=== PATIENT | male | born 1990 | race Caucasian/White ===

== ENCOUNTER 2017-02-13 23:09 | Inpatient (IN) | payer OTHER, MEDICAID ==
[~2017-02-13] VITALS: Ht 175.3 cm; Wt 71.6 kg
[~2017-02-13 23:09] MED LIST: DIVA500T52 PO; RISP1 PO
[2017-02-14] MEDS ORDERED: ZOLPIDEM TARTRATE 10 MG TABLET PO PRN (03:00)
[2017-02-14] MEDS ORDERED: QUEtiapine FUMARATE 100 MG TABLET PO PRN (03:00)
[2017-02-14 03:56] VITALS: BP 112/82
[2017-02-14] MEDS: LORazepam 1 MG TABLET PO PRN ×2 (08:06→20:15)
[2017-02-14 08:31] VITALS: BP 115/83
[2017-02-14] MEDS ORDERED: METO25 PO (09:12)
[2017-02-14] MEDS ORDERED: BENZ1TAB10 PO (09:12)
[2017-02-14] MEDS ORDERED: OLAN10TA3 PO (09:12)
[2017-02-14 16:00] VITALS: BP 116/66
[2017-02-14] MEDS ORDERED: DIVALPROEX SODIUM 500 MG ER TABLET PO SCH (17:00)
[2017-02-14] MEDS: RisperiDONE 2 MG TABLET PO SCH (17:07)
[2017-02-14] MEDS ORDERED: ALBUTEROL SULFATE HFA 90 MCG/PUFF 8 GM INHALER IH PRN (18:30)
[2017-02-14] MEDS ORDERED: ONDANSETRON HCL 4 MG TABLET PO PRN (18:30)
[2017-02-14] MEDS ORDERED: MAGNESIUM HYDROXIDE SUSPENSION 30 ML UDCUP PO PRN (18:30)
[2017-02-14] MEDS ORDERED: IBUPROFEN 600 MG TABLET PO PRN (18:30)
[2017-02-14] MEDS ORDERED: LOPERAMIDE HCL 2 MG CAPSULE PO PRN (18:30)
[2017-02-14] MEDS ORDERED: MAG HYDROX/AL HYDROX/SIMETH ES 30 ML SUSPENSION UDCUP PO PRN (18:30)
[2017-02-14] MEDS ORDERED: BACITRACIN 28.4 GM OINTMENT TP PRN (18:30)
[2017-02-14] MEDS ORDERED: CloNIDine HCL 0.1 MG TABLET PO PRN (18:30)
[2017-02-14] MEDS ORDERED: BENZOCAINE/MENTHOL LOZENGE MM PRN (18:30)
[2017-02-14] MEDS ORDERED: PHENYLEPHRINE/SHK LV/MIN OIL/PET 57 GM OINTMENT TP PRN (18:30)
[2017-02-14] MEDS ORDERED: ACETAMINOPHEN 325 MG TABLET PO PRN (18:30)
[2017-02-14] MEDS ORDERED: PETROLATUM,WHITE 71 GM JELLY TP PRN (18:30)
[2017-02-15 05:44] VITALS: BP 104/65
[2017-02-15 08:14] LABS: BASOPHILS % (AUTO) 0.6 % (0.0-2.0); EOSINOPHILS % (AUTO) 3.4 % (1.0-6.0); HEMATOCRIT 50.6 % (41-53); HEMOGLOBIN 16.6 g/dL (13.5-17.5); LYMPHOCYTES # (AUTO) 2.3 K/uL (1.0-4.8); LYMPHOCYTES % (AUTO) 38.1 % (22.0-44.0); MEAN CORPUSCULAR HEMOGLOBIN 29.3 pg (26.0-34.0); MEAN CORPUSCULAR HGB CONC 32.8 G/dL (31.0-37.0); MEAN CORPUSCULAR VOLUME 89 fL (80-100); MONOCYTES # (AUTO) 0.6 K/uL (0.1-1.0); MONOCYTES % (AUTO) 10.5 % (2.0-9.0); NEUTROPHILS # (AUTO) 2.8 K/uL (1.8-7.7); NEUTROPHILS % (AUTO) 47.4 % (40.0-70.0); PLATELET COUNT (AUTO) 179 K/uL (150-450); RED BLOOD CELL COUNT(AUTO) 5.66 MIL/uL (4.50-5.90); RED CELL DISTRIBUTION WIDTH 12.4 % (11.5-14.5)
[2017-02-15 08:40] LABS: ALANINE AMINOTRANSFERASE 36 U/L (12-78); ALBUMIN 3.9 g/dL (3.4-5.0); ANION GAP 6 mmol/L (8-16); ASPARTATE AMINOTRANSFERASE 19 U/L (15-37); BILIRUBIN,TOTAL 0.7 mg/dL (0.1-1.0); CALCIUM, TOTAL 8.7 mg/dL (8.8-10.5); CARBON DIOXIDE 31 mmol/L (22-29); CHLORIDE 104 mmol/L (98-107); CHOL/HDL RATIO 3.6 (4.2-7.3); GLOMERULAR FILTR. RATE CALC > 60 mL/min (>60); PHOSPHORUS 3.6 mg/dL (2.5-4.9); POTASSIUM 4.1 mmol/L (3.5-5.1); SODIUM SERUM 141 mmol/L (136-145); THYROID STIMULATING HORMONE 4.37 uIU/mL (0.36-3.74); TOTAL PROTEIN, SERUM 7.4 g/dL (6.4-8.2); UREA NITROGEN, BLOOD 13 mg/dL (7-18)
[2017-02-15] MEDS ORDERED: METOPROLOL TARTRATE 25 MG TABLET PO SCH (09:00)
[2017-02-15] MEDS ORDERED: VALPROIC ACID 250 MG/5 ML SYRUP UDCUP PO SCH (09:00)
[2017-02-15] MEDS: RisperiDONE 2 MG TABLET PO SCH (09:10)
[2017-02-15 10:54] VITALS: BP 106/57
[2017-02-15] MEDS ORDERED: VALP250 PO (12:47)
== END 2017-02-15 14:09 | disposition home or self-care (01) | DRG 885 ==
LOC: B3A 02-14 02:54
DX: F20.0 Paranoid schizophrenia (principal); I10 Essential (primary) hypertension; F79 Unspecified intellectual disabilities; K59.00 Constipation, unspecified; G47.00 Insomnia, unspecified; Z56.0 Unemployment, unspecified
CPT/HCPCS: 82271; 82306; 83735; 84100; 84443

== ENCOUNTER 2017-06-08 23:31 | Emergency (ER) | payer MEDICARE, MEDICAID ==
[~2017-06-08] VITALS: Ht 175.3 cm; Wt 72.7 kg
[~2017-06-08 23:31] MED LIST changes: -DIVA500T52 PO; +METO25 PO; +VALP250 PO
[2017-06-08] MEDS ORDERED: BENZ1TAB10 PO (23:42)
[2017-06-09] MEDS ORDERED: ACETAMINOPHEN 500 MG TABLET PO ONE (01:00)
[2017-06-09 01:12] VITALS: BP 107/75
== END 2017-06-09 01:19 | disposition home or self-care (01) ==
LOC: EMS 23:32
DX: K60.2 Anal fissure, unspecified (principal); F20.9 Schizophrenia, unspecified; I10 Essential (primary) hypertension
CPT/HCPCS: 99282; 99283

== ENCOUNTER 2017-06-09 23:05 | Inpatient (IN) | payer OTHER, MEDICAID ==
[~2017-06-09] VITALS: Ht 175.3 cm; Wt 75.0 kg
[~2017-06-09 23:05] MED LIST changes: +BENZ1TAB10 PO; -METO25 PO; -VALP250 PO
[2017-06-09 23:25] LABS: BASOPHILS % (AUTO) 1.1 % (0.0-2.0); EOSINOPHILS % (AUTO) 0.6 % (1.0-6.0); HEMATOCRIT 45.6 % (41-53); HEMOGLOBIN 15.7 g/dL (13.5-17.5); LYMPHOCYTES # (AUTO) 1.6 K/uL (1.0-4.8); LYMPHOCYTES % (AUTO) 27.7 % (22.0-44.0); MEAN CORPUSCULAR HEMOGLOBIN 30.5 pg (26.0-34.0); MEAN CORPUSCULAR HGB CONC 34.4 G/dL (31.0-37.0); MEAN CORPUSCULAR VOLUME 89 fL (80-100); MONOCYTES # (AUTO) 0.3 K/uL (0.1-1.0); MONOCYTES % (AUTO) 5.6 % (2.0-9.0); NEUTROPHILS # (AUTO) 3.8 K/uL (1.8-7.7); PLATELET COUNT (AUTO) 235 K/uL (150-450); RED BLOOD CELL COUNT(AUTO) 5.14 MIL/uL (4.50-5.90); RED CELL DISTRIBUTION WIDTH 12.9 % (11.5-14.5); WHITE BLOOD COUNT (AUTO) 5.8 K/uL (4.5-11.0)
[2017-06-09 23:35] LABS: ANION GAP 12 mmol/L (8-16); CALCIUM, TOTAL 9.2 mg/dL (8.8-10.5); CARBON DIOXIDE 23 mmol/L (22-29); CHLORIDE 103 mmol/L (98-107); CREATININE 1.01 mg/dL (0.60-1.30); GLOMERULAR FILTR. RATE CALC > 60 mL/min (>60); POTASSIUM 3.9 mmol/L (3.5-5.1); SODIUM SERUM 138 mmol/L (136-145); UREA NITROGEN, BLOOD 9 mg/dL (7-18)
[2017-06-09 23:41] LABS: ALANINE AMINOTRANSFERASE 17 U/L (12-78); ALBUMIN 4.8 g/dL (3.4-5.0); ASPARTATE AMINOTRANSFERASE 14 U/L (15-37); BILIRUBIN,TOTAL 0.6 mg/dL (0.1-1.0); TOTAL PROTEIN, SERUM 8.2 g/dL (6.4-8.2)
[2017-06-10] MEDS ORDERED: LORazepam 2 MG TABLET PO ONE (00:45)
[2017-06-10] MEDS ORDERED: LORazepam 2 MG TABLET PO PRN (00:45)
[2017-06-10] MEDS ORDERED: HALOPERIDOL 5 MG TABLET PO PRN (00:45)
[2017-06-10] MEDS ORDERED: ZOLPIDEM TARTRATE 10 MG TABLET PO PRN ×2 (00:45→01:15)
[2017-06-10 00:54] LABS: ADD UA MICROSCOPIC NO; APPEARANCE,URINE CLEAR (CLEAR); GLUCOSE, URINE (UA) NEGATIVE (NEGATIVE); KETONES,URINE NEGATIVE (NEGATIVE); LEUKOCYTE ESTERASE ,URINE NEGATIVE (NEGATIVE); OCCULT BLOOD,URINE NEGATIVE (NEGATIVE); PROTEIN,URINE NEGATIVE (NEGATIVE)
[2017-06-10] MEDS ORDERED: QUEtiapine FUMARATE 100 MG TABLET PO PRN (01:15)
[2017-06-10 02:10] VITALS: BP 122/74
[2017-06-10] MEDS ORDERED: BACITRACIN 28.4 GM OINTMENT TP PRN (08:45)
[2017-06-10] MEDS ORDERED: CloNIDine HCL 0.1 MG TABLET PO PRN (08:45)
[2017-06-10] MEDS ORDERED: MAG HYDROX/AL HYDROX/SIMETH ES 30 ML SUSPENSION UDCUP PO PRN (08:45)
[2017-06-10] MEDS ORDERED: PETROLATUM,WHITE 71 GM JELLY TP PRN (08:45)
[2017-06-10] MEDS ORDERED: ONDANSETRON HCL 4 MG TABLET PO PRN (08:45)
[2017-06-10] MEDS ORDERED: BENZOCAINE/MENTHOL LOZENGE MM PRN (08:45)
[2017-06-10] MEDS ORDERED: MAGNESIUM HYDROXIDE SUSPENSION 30 ML UDCUP PO PRN (08:45)
[2017-06-10] MEDS ORDERED: ALBUTEROL SULFATE HFA 90 MCG/PUFF 8 GM INHALER IH PRN (08:45)
[2017-06-10] MEDS ORDERED: LOPERAMIDE HCL 2 MG CAPSULE PO PRN (08:45)
[2017-06-10] MEDS ORDERED: ACETAMINOPHEN 325 MG TABLET PO PRN (08:45)
[2017-06-10] MEDS: RisperiDONE 1 MG TABLET PO SCH ×2 (09:57→20:36)
[2017-06-10] MEDS: BENZTROPINE MESYLATE 1 MG TABLET PO SCH ×2 (09:57→20:36)
[2017-06-10] MEDS: CHOLECALCIFEROL (VIT D3) 1,000 UNITS TABLET PO SCH (09:57)
[2017-06-10 16:15] VITALS: BP 108/62
[2017-06-10] MEDS: IBUPROFEN 600 MG TABLET PO PRN (16:29)
[2017-06-10] MEDS: LORazepam 2 MG TABLET PO PRN (19:26)
[2017-06-11 00:10] VITALS: BP 113/60
[2017-06-11] MEDS: LEVOTHYROXINE SODIUM 25 MCG TABLET PO SCH (06:38)
[2017-06-11 08:06] VITALS: BP 120/66
[2017-06-11] MEDS: CHOLECALCIFEROL (VIT D3) 1,000 UNITS TABLET PO SCH (09:14)
[2017-06-11] MEDS: RisperiDONE 1 MG TABLET PO SCH ×2 (09:14→20:06)
[2017-06-11] MEDS: BENZTROPINE MESYLATE 1 MG TABLET PO SCH ×2 (09:14→20:06)
[2017-06-11 16:00] VITALS: BP 113/66
[2017-06-11] MEDS: IBUPROFEN 600 MG TABLET PO PRN (16:09)
[2017-06-11] MEDS: LORazepam 2 MG TABLET PO PRN (16:10)
[2017-06-12 01:13] VITALS: BP 116/73
[2017-06-12] MEDS: LEVOTHYROXINE SODIUM 25 MCG TABLET PO SCH (06:45)
[2017-06-12 08:16] VITALS: BP 102/55
[2017-06-12] MEDS: BENZTROPINE MESYLATE 1 MG TABLET PO SCH ×2 (09:10→20:04)
[2017-06-12] MEDS: CHOLECALCIFEROL (VIT D3) 1,000 UNITS TABLET PO SCH (09:10)
[2017-06-12] MEDS: RisperiDONE 1 MG TABLET PO SCH ×2 (09:10→20:04)
[2017-06-12] MEDS: IBUPROFEN 600 MG TABLET PO PRN (14:39)
[2017-06-12 14:41] VITALS: BP 109/71
[2017-06-12 16:11] VITALS: BP 107/73
[2017-06-12] MEDS: LORazepam 2 MG TABLET PO PRN (16:26)
[2017-06-13 00:20] VITALS: BP 108/70
[2017-06-13] MEDS: LEVOTHYROXINE SODIUM 25 MCG TABLET PO SCH (06:30)
[2017-06-13 09:05] VITALS: BP 110/64
[2017-06-13] MEDS: BENZTROPINE MESYLATE 1 MG TABLET PO SCH ×2 (09:06→20:36)
[2017-06-13] MEDS: RisperiDONE 1 MG TABLET PO SCH ×2 (09:06→20:36)
[2017-06-13] MEDS: CHOLECALCIFEROL (VIT D3) 1,000 UNITS TABLET PO SCH (09:06)
[2017-06-13 16:09] VITALS: BP 114/78
[2017-06-13 16:56] VITALS: BP 122/68
[2017-06-13] MEDS: IBUPROFEN 600 MG TABLET PO PRN (16:59)
[2017-06-14 04:48] VITALS: BP 120/87
[2017-06-14] MEDS: LEVOTHYROXINE SODIUM 25 MCG TABLET PO SCH (06:43)
[2017-06-14 09:20] VITALS: BP 118/71
[2017-06-14] MEDS: BENZTROPINE MESYLATE 1 MG TABLET PO SCH ×2 (09:26→20:44)
[2017-06-14] MEDS: CHOLECALCIFEROL (VIT D3) 1,000 UNITS TABLET PO SCH (09:26)
[2017-06-14] MEDS: RisperiDONE 1 MG TABLET PO SCH ×2 (09:26→20:44)
[2017-06-14 14:00] VITALS: BP 119/71
[2017-06-14 16:19] VITALS: BP 106/64
[2017-06-15 00:05] VITALS: BP 110/60
[2017-06-15] MEDS: LEVOTHYROXINE SODIUM 25 MCG TABLET PO SCH ×2 (06:30→07:35)
[2017-06-15 08:20] VITALS: BP 111/74
[2017-06-15] MEDS: CHOLECALCIFEROL (VIT D3) 1,000 UNITS TABLET PO SCH (08:27)
[2017-06-15] MEDS: BENZTROPINE MESYLATE 1 MG TABLET PO SCH (08:27)
[2017-06-15] MEDS: RisperiDONE 1 MG TABLET PO SCH (08:27)
[2017-06-15] MEDS ORDERED: LEVO25TA9 PO (08:45)
== END 2017-06-15 10:10 | disposition home or self-care (01) | DRG 885 ==
LOC: EMS 23:06 → B2X 06-10 01:03
PROVIDERS: ATTEND Psychiatry & Neurology Psychiatry
DX: F20.0 Paranoid schizophrenia (principal); F39 Unspecified mood [affective] disorder; I10 Essential (primary) hypertension; E55.9 Vitamin D deficiency, unspecified; E03.9 Hypothyroidism, unspecified; E78.5 Hyperlipidemia, unspecified; G47.00 Insomnia, unspecified; K59.00 Constipation, unspecified; Z91.19 Patient's noncompliance with other medical treatment and regimen; Z56.0 Unemployment, unspecified; F79 Unspecified intellectual disabilities
CPT/HCPCS: 99285; G0480; Q0162

== ENCOUNTER 2017-07-23 19:18 | Emergency (ER) | payer OTHER, MEDICAID ==
[~2017-07-23 19:18] MED LIST changes: +LEVO25TA9 PO
== END 2017-07-23 20:20 | disposition left against medical advice (07) ==
LOC: EMS 19:19
DX: Z53.21 Procedure and treatment not carried out due to patient leaving prior to being seen by health care provider (principal)

== ENCOUNTER 2018-03-28 00:55 | Emergency (ER) | payer MEDICARE, MEDICAID ==
[~2018-03-28] VITALS: Ht 175.3 cm; Wt 75.0 kg
[2018-03-28 01:48] LABS: BASOPHILS % (AUTO) 0.7 % (0.0-2.0); EOSINOPHILS % (AUTO) 0.3 % (1.0-6.0); HEMATOCRIT 49.4 % (41-53); HEMOGLOBIN 17.5 g/dL (13.5-17.5); LYMPHOCYTES # (AUTO) 1.9 K/uL (1.0-4.8); LYMPHOCYTES % (AUTO) 15.8 % (22.0-44.0); MEAN CORPUSCULAR HEMOGLOBIN 30.4 pg (26.0-34.0); MEAN CORPUSCULAR HGB CONC 35.5 G/dL (31.0-37.0); MEAN CORPUSCULAR VOLUME 86 fL (80-100); MONOCYTES # (AUTO) 0.8 K/uL (0.1-1.0); MONOCYTES % (AUTO) 6.8 % (2.0-9.0); NEUTROPHILS # (AUTO) 9.4 K/uL (1.8-7.7); NEUTROPHILS % (AUTO) 76.4 % (40.0-70.0); PLATELET COUNT (AUTO) 275 K/uL (150-450); RED BLOOD CELL COUNT(AUTO) 5.78 MIL/uL (4.50-5.90); RED CELL DISTRIBUTION WIDTH 13.3 % (11.5-14.5)
[2018-03-28 01:51] LABS: AMPHET/METH SCREEN,URINE NEGATIVE (NEGATIVE); BARBITURATE SCREEN, URINE NEGATIVE (NEGATIVE); BENZODIAZEPINES SCREEN,URINE NEGATIVE (NEGATIVE); CANNABINOID SCREEN,URINE NEGATIVE (NEGATIVE); COCAINE SCREEN,URINE NEGATIVE (NEGATIVE); METHADONE SCREEN, URINE NEGATIVE (NEGATIVE); OPIATE SCREEN,URINE NEGATIVE (NEGATIVE); PHENCYCLIDINE SCREEN,URINE NEGATIVE (NEGATIVE)
[2018-03-28 02:05] LABS: ANION GAP 6 mmol/L (8-16); CALCIUM, TOTAL 9.2 mg/dL (8.8-10.5); CARBON DIOXIDE 31 mmol/L (22-29); CHLORIDE 103 mmol/L (98-107); CREATININE 1.11 mg/dL (0.60-1.30); GLOMERULAR FILTR. RATE CALC > 60 mL/min (>60); GLUCOSE,RANDOM 100 mg/dL (70-110); POTASSIUM 3.9 mmol/L (3.5-5.1); SODIUM SERUM 140 mmol/L (136-145); UREA NITROGEN, BLOOD 9 mg/dL (7-18)
[2018-03-28 02:11] LABS: ALANINE AMINOTRANSFERASE 25 U/L (12-78); ALBUMIN 4.6 g/dL (3.4-5.0); ALKALINE PHOSPHATASE 88 U/L (46-116); ASPARTATE AMINOTRANSFERASE 13 U/L (15-37); BILIRUBIN,TOTAL 0.5 mg/dL (0.1-1.0); PLATELET MORPHOLOGY COMMENT GIANT PLTS PRESENT; TOTAL PROTEIN, SERUM 8.1 g/dL (6.4-8.2)
[2018-03-28 03:47] VITALS: BP 128/87
[2018-03-28] MEDS ORDERED: LORazepam 2 MG TABLET PO ONE (04:45)
== END 2018-03-28 04:51 | disposition home or self-care (01) ==
LOC: EMS 00:56
DX: F20.9 Schizophrenia, unspecified (principal); I10 Essential (primary) hypertension
CPT/HCPCS: 36415; 80053; 80307; 85025; 99284; G0480

== ENCOUNTER 2018-11-07 17:12 | Inpatient (IN) | payer OTHER, MEDICAID ==
[~2018-11-07] VITALS: Ht 182.9 cm; Wt 74.9 kg
[~2018-11-07 17:12] MED LIST changes: -LEVO25TA9 PO
[2018-11-07 17:53] LABS: BASOPHILS % (AUTO) 0.6 % (0.0-2.0); EOSINOPHILS % (AUTO) 0.4 % (1.0-6.0); HEMATOCRIT 44.3 % (41-53); LYMPHOCYTES # (AUTO) 1.1 K/uL (1.0-4.8); LYMPHOCYTES % (AUTO) 9.4 % (22.0-44.0); MEAN CORPUSCULAR HEMOGLOBIN 29.2 pg (26.0-34.0); MEAN CORPUSCULAR HGB CONC 33.9 G/dL (31.0-37.0); MEAN CORPUSCULAR VOLUME 86 fL (80-100); MONOCYTES % (AUTO) 9.1 % (2.0-9.0); NEUTROPHILS % (AUTO) 80.5 % (40.0-70.0); PLATELET COUNT (AUTO) 267 K/uL (150-450); RED BLOOD CELL COUNT(AUTO) 5.13 MIL/uL (4.50-5.90); RED CELL DISTRIBUTION WIDTH 13.6 % (11.5-14.5)
[2018-11-07 17:58] LABS: ANION GAP 6 mmol/L (8-16); CALCIUM, TOTAL 8.6 mg/dL (8.8-10.5); CARBON DIOXIDE 28 mmol/L (22-29); CHLORIDE 106 mmol/L (98-107); CREATININE 1.04 mg/dL (0.60-1.30); GLOMERULAR FILTR. RATE CALC > 60 mL/min (>60); GLUCOSE,RANDOM 65 mg/dL (70-110); POTASSIUM 3.5 mmol/L (3.5-5.1); SODIUM SERUM 140 mmol/L (136-145); UREA NITROGEN, BLOOD 22 mg/dL (7-18)
[2018-11-07 18:04] LABS: ALANINE AMINOTRANSFERASE 29 U/L (12-78); ALBUMIN 3.8 g/dL (3.4-5.0); ALKALINE PHOSPHATASE 147 U/L (46-116); ASPARTATE AMINOTRANSFERASE 20 U/L (15-37); BILIRUBIN,TOTAL 0.2 mg/dL (0.1-1.0); TOTAL PROTEIN, SERUM 7.1 g/dL (6.4-8.2)
[2018-11-07] MEDS ORDERED: ZOLPIDEM TARTRATE 10 MG TABLET PO PRN (18:15)
[2018-11-07] MEDS ORDERED: ACETAMINOPHEN 325 MG TABLET PO PRN (18:15)
[2018-11-07] MEDS ORDERED: IBUPROFEN 400 MG TABLET PO PRN (18:15)
[2018-11-07] MEDS ORDERED: LORazepam 2 MG TABLET PO PRN (18:15)
[2018-11-07 20:15] VITALS: BP 118/73
[2018-11-07] MEDS ORDERED: ONDANSETRON HCL 4 MG TABLET PO PRN (20:45)
[2018-11-07] MEDS ORDERED: NICOTINE 14 MG/24 HOUR PATCH TD PRN (20:45)
[2018-11-07] MEDS ORDERED: DOCUSATE SODIUM 100 MG CAPSULE PO PRN (20:45)
[2018-11-07] MEDS ORDERED: MAGNESIUM HYDROXIDE SUSPENSION 30 ML UDCUP PO PRN (20:45)
[2018-11-07] MEDS ORDERED: LOPERAMIDE HCL 2 MG CAPSULE PO PRN (20:45)
[2018-11-07] MEDS ORDERED: ALBUTEROL SULFATE HFA 90 MCG/PUFF 8 GM INHALER IH PRN (20:45)
[2018-11-07] MEDS ORDERED: GuaiFENesin/D-METHORPHAN [SUGAR-FREE] 200-20MG/10 ML SYRUP UDCUP PO PRN (20:45)
[2018-11-07] MEDS ORDERED: PETROLATUM,WHITE 71 GM JELLY TP PRN (20:45)
[2018-11-07] MEDS ORDERED: CloNIDine HCL 0.1 MG TABLET PO PRN (20:45)
[2018-11-07] MEDS ORDERED: MAG HYDROX/AL HYDROX/SIMETH ES 30 ML SUSPENSION UDCUP PO PRN (20:45)
[2018-11-08 06:12] LABS: BASOPHILS % (AUTO) 0.7 % (0.0-2.0); EOSINOPHILS % (AUTO) 2.8 % (1.0-6.0); HEMATOCRIT 40.6 % (41-53); HEMOGLOBIN 14.5 g/dL (13.5-17.5); LYMPHOCYTES # (AUTO) 1.5 K/uL (1.0-4.8); LYMPHOCYTES % (AUTO) 29.5 % (22.0-44.0); MEAN CORPUSCULAR HEMOGLOBIN 30.2 pg (26.0-34.0); MEAN CORPUSCULAR HGB CONC 35.8 G/dL (31.0-37.0); MEAN CORPUSCULAR VOLUME 85 fL (80-100); MONOCYTES # (AUTO) 0.5 K/uL (0.1-1.0); MONOCYTES % (AUTO) 10.5 % (2.0-9.0); NEUTROPHILS # (AUTO) 2.9 K/uL (1.8-7.7); NEUTROPHILS % (AUTO) 56.5 % (40.0-70.0); PLATELET COUNT (AUTO) 238 K/uL (150-450); RED BLOOD CELL COUNT(AUTO) 4.81 MIL/uL (4.50-5.90); RED CELL DISTRIBUTION WIDTH 13.7 % (11.5-14.5)
[2018-11-08 06:22] LABS: HEMOGLOBIN A1C 5.1 % (4.5-6.2)
[2018-11-08] MEDS ORDERED: PNEUMOCOCCAL VACCINE POLYVALENT 0.5 ML VIAL [PPSV23] IM ONE (06:30)
[2018-11-08 06:55] LABS: ALANINE AMINOTRANSFERASE 26 U/L (12-78); ALBUMIN 3.3 g/dL (3.4-5.0); ALKALINE PHOSPHATASE 102 U/L (46-116); ANION GAP 5 mmol/L (8-16); ASPARTATE AMINOTRANSFERASE 26 U/L (15-37); BILIRUBIN,TOTAL 0.6 mg/dL (0.1-1.0); CALCIUM, TOTAL 8.5 mg/dL (8.8-10.5); CARBON DIOXIDE 30 mmol/L (22-29); CHLORIDE 106 mmol/L (98-107); CREATININE 0.92 mg/dL (0.60-1.30); GLOMERULAR FILTR. RATE CALC > 60 mL/min (>60); GLUCOSE,RANDOM 80 mg/dL (70-110); HDL CHOLESTEROL 70 mg/dL (40-60); POTASSIUM 3.7 mmol/L (3.5-5.1); SODIUM SERUM 141 mmol/L (136-145); THYROID STIMULATING HORMONE 1.39 uIU/mL (0.36-3.74); TOTAL PROTEIN, SERUM 6.4 g/dL (6.4-8.2); TRIGLYCERIDES 51 mg/dL (15-150); UREA NITROGEN, BLOOD 17 mg/dL (7-18)
[2018-11-08 07:10] LABS: CHOL/HDL RATIO 2.2 (4.2-7.3); CHOLESTEROL 151 mg/dL (131-200); LDL CHOL (CALC.) 71 mg/dL (0-130)
[2018-11-08 08:05] VITALS: BP 141/91
[2018-11-08] MEDS: RisperiDONE 2 MG TABLET PO SCH (21:00)
[2018-11-09 08:05] VITALS: BP 122/87
[2018-11-09] MEDS: RisperiDONE 2 MG TABLET PO SCH ×2 (09:00→21:00)
[2018-11-09 17:21] VITALS: BP 139/95
[2018-11-10 04:07] VITALS: BP 118/73
[2018-11-10] MEDS: RisperiDONE 2 MG TABLET PO SCH ×2 (09:00→21:00)
[2018-11-10 17:01] VITALS: BP 139/83
[2018-11-11] MEDS: RisperiDONE 2 MG TABLET PO SCH ×2 (09:00→20:49)
[2018-11-11 12:16] VITALS: BP 106/70
[2018-11-11] MEDS ORDERED: RISP2 PO (13:42)
[2018-11-11 16:36] VITALS: BP 112/69
[2018-11-11] MEDS: BENZTROPINE MESYLATE 1 MG TABLET PO SCH (17:00)
[2018-11-11] MEDS: DIVALPROEX SODIUM 250 MG DR TABLET PO SCH (20:49)
[2018-11-12 08:22] VITALS: BP 134/81
[2018-11-12] MEDS: RisperiDONE 2 MG TABLET PO SCH ×2 (09:00→21:00)
[2018-11-12] MEDS: BENZTROPINE MESYLATE 1 MG TABLET PO SCH ×2 (09:00→17:00)
[2018-11-12 16:44] VITALS: BP 108/74
[2018-11-12] MEDS: DIVALPROEX SODIUM 250 MG DR TABLET PO SCH (21:00)
[2018-11-13] MEDS: RisperiDONE 2 MG TABLET PO SCH ×2 (09:00→21:00)
[2018-11-13] MEDS: BENZTROPINE MESYLATE 1 MG TABLET PO SCH ×2 (09:00→17:00)
[2018-11-13] MEDS: DIVALPROEX SODIUM 250 MG DR TABLET PO SCH (21:00)
[2018-11-14 00:43] VITALS: BP 113/59
[2018-11-14] MEDS: RisperiDONE 2 MG TABLET PO SCH ×2 (08:57→20:52)
[2018-11-14] MEDS: BENZTROPINE MESYLATE 1 MG TABLET PO SCH ×2 (08:57→17:00)
[2018-11-14] MEDS: DIVALPROEX SODIUM 250 MG DR TABLET PO SCH (20:51)
[2018-11-15 05:06] VITALS: BP 124/80
[2018-11-15] MEDS: RisperiDONE 2 MG TABLET PO SCH ×2 (09:00→21:00)
[2018-11-15] MEDS: BENZTROPINE MESYLATE 1 MG TABLET PO SCH ×2 (09:00→16:50)
[2018-11-15 17:00] VITALS: BP 120/75
[2018-11-15] MEDS: DIVALPROEX SODIUM 250 MG DR TABLET PO SCH (21:00)
[2018-11-16] MEDS: BENZTROPINE MESYLATE 1 MG TABLET PO SCH ×2 (09:00→17:00)
[2018-11-16] MEDS: RisperiDONE 2 MG TABLET PO SCH ×2 (09:00→21:00)
[2018-11-16] MEDS: DIVALPROEX SODIUM 250 MG DR TABLET PO SCH (21:00)
[2018-11-17 01:18] VITALS: BP 128/83
[2018-11-17] MEDS: RisperiDONE 2 MG TABLET PO SCH ×2 (09:00→21:00)
[2018-11-17] MEDS: BENZTROPINE MESYLATE 1 MG TABLET PO SCH ×2 (09:00→17:00)
[2018-11-17 18:33] VITALS: BP 122/88
[2018-11-17] MEDS: DIVALPROEX SODIUM 250 MG DR TABLET PO SCH (21:00)
[2018-11-18 06:46] VITALS: BP 122/109
[2018-11-18] MEDS: RisperiDONE 2 MG TABLET PO SCH ×2 (09:00→20:09)
[2018-11-18] MEDS: BENZTROPINE MESYLATE 1 MG TABLET PO SCH ×2 (09:00→17:00)
[2018-11-18] MEDS: DIVALPROEX SODIUM 250 MG DR TABLET PO SCH (20:09)
[2018-11-19] MEDS: RisperiDONE 2 MG TABLET PO SCH ×2 (09:00→21:00)
[2018-11-19] MEDS: BENZTROPINE MESYLATE 1 MG TABLET PO SCH ×2 (09:00→17:00)
[2018-11-19] MEDS: DIVALPROEX SODIUM 250 MG DR TABLET PO SCH (21:00)
[2018-11-20 08:05] VITALS: BP 135/69
[2018-11-20] MEDS: RisperiDONE 2 MG TABLET PO SCH ×2 (09:00→21:00)
[2018-11-20] MEDS: BENZTROPINE MESYLATE 1 MG TABLET PO SCH ×2 (09:00→17:00)
[2018-11-20] MEDS: DIVALPROEX SODIUM 250 MG DR TABLET PO SCH (21:00)
[2018-11-21] MEDS: RisperiDONE 2 MG TABLET PO SCH ×2 (08:50→21:00)
[2018-11-21] MEDS: BENZTROPINE MESYLATE 1 MG TABLET PO SCH ×2 (08:50→17:00)
[2018-11-21] MEDS: DIVALPROEX SODIUM 250 MG DR TABLET PO SCH (21:00)
[2018-11-22] MEDS: RisperiDONE 2 MG TABLET PO SCH ×2 (09:00→21:00)
[2018-11-22] MEDS: BENZTROPINE MESYLATE 1 MG TABLET PO SCH ×2 (09:00→17:00)
[2018-11-22 18:12] VITALS: BP 109/68
[2018-11-22] MEDS: DIVALPROEX SODIUM 250 MG DR TABLET PO SCH (21:00)
[2018-11-23 08:00] VITALS: BP 133/68
[2018-11-23] MEDS: BENZTROPINE MESYLATE 1 MG TABLET PO SCH ×2 (09:51→16:05)
[2018-11-23] MEDS: RisperiDONE 2 MG TABLET PO SCH ×2 (09:51→20:08)
[2018-11-23] MEDS: DIVALPROEX SODIUM 250 MG DR TABLET PO SCH (20:08)
[2018-11-24] MEDS: BENZTROPINE MESYLATE 1 MG TABLET PO SCH ×2 (10:03→17:00)
[2018-11-24] MEDS: RisperiDONE 2 MG TABLET PO SCH ×2 (10:03→21:00)
[2018-11-24 16:29] VITALS: BP 110/74
[2018-11-24] MEDS: DIVALPROEX SODIUM 250 MG DR TABLET PO SCH (21:00)
[2018-11-25 05:20] VITALS: BP 115/69
[2018-11-25 08:00] VITALS: BP 131/86
[2018-11-25] MEDS: RisperiDONE 2 MG TABLET PO SCH ×2 (09:57→20:24)
[2018-11-25] MEDS: BENZTROPINE MESYLATE 1 MG TABLET PO SCH ×2 (09:57→17:57)
[2018-11-25 16:53] VITALS: BP 111/63
[2018-11-25] MEDS: DIVALPROEX SODIUM 250 MG DR TABLET PO SCH (20:23)
[2018-11-26 08:00] VITALS: BP 125/74
[2018-11-26] MEDS: BENZTROPINE MESYLATE 1 MG TABLET PO SCH ×2 (09:42→16:28)
[2018-11-26] MEDS: RisperiDONE 2 MG TABLET PO SCH ×2 (09:42→20:29)
[2018-11-26] MEDS: DIVALPROEX SODIUM 250 MG DR TABLET PO SCH (20:29)
[2018-11-27 08:00] VITALS: BP 121/71
[2018-11-27] MEDS: BENZTROPINE MESYLATE 1 MG TABLET PO SCH ×2 (08:35→16:42)
[2018-11-27] MEDS: RisperiDONE 2 MG TABLET PO SCH (08:35)
[2018-11-27] MEDS ORDERED: PALIPERIDONE PALMITATE 234 MG/1.5 ML SYRINGE IM ONE (12:00)
[2018-11-27 16:26] VITALS: BP 133/70
[2018-11-27] MEDS: CarBAMazepine 200 MG TABLET PO SCH (16:42)
[2018-11-27] MEDS: RisperiDONE 3 MG TABLET PO SCH (16:42)
[2018-11-27] MEDS: DIVALPROEX SODIUM 250 MG DR TABLET PO SCH (20:15)
[2018-11-28 08:03] VITALS: BP 104/64
[2018-11-28] MEDS: CarBAMazepine 200 MG TABLET PO SCH ×2 (09:00→16:24)
[2018-11-28] MEDS: BENZTROPINE MESYLATE 1 MG TABLET PO SCH ×2 (09:00→16:24)
[2018-11-28] MEDS: RisperiDONE 3 MG TABLET PO SCH ×2 (09:01→16:24)
[2018-11-28 17:08] VITALS: BP 130/71
[2018-11-28] MEDS: DIVALPROEX SODIUM 250 MG DR TABLET PO SCH (20:55)
[2018-11-29] MEDS: BENZTROPINE MESYLATE 1 MG TABLET PO SCH ×2 (08:10→17:51)
[2018-11-29] MEDS: RisperiDONE 3 MG TABLET PO SCH ×2 (08:10→17:51)
[2018-11-29] MEDS: CarBAMazepine 200 MG TABLET PO SCH ×2 (08:10→17:51)
[2018-11-29 09:32] VITALS: BP 127/92
[2018-11-29 19:34] VITALS: BP 117/90
[2018-11-29] MEDS: DIVALPROEX SODIUM 250 MG DR TABLET PO SCH (20:54)
[2018-11-30] MEDS: CarBAMazepine 200 MG TABLET PO SCH ×2 (08:14→16:22)
[2018-11-30] MEDS: RisperiDONE 3 MG TABLET PO SCH ×2 (08:14→16:22)
[2018-11-30] MEDS: BENZTROPINE MESYLATE 1 MG TABLET PO SCH ×2 (08:15→16:22)
[2018-11-30] MEDS: DIVALPROEX SODIUM 250 MG DR TABLET PO SCH (20:07)
[2018-12-01] MEDS: BENZTROPINE MESYLATE 1 MG TABLET PO SCH ×2 (07:52→16:54)
[2018-12-01] MEDS: RisperiDONE 3 MG TABLET PO SCH ×2 (07:52→16:54)
[2018-12-01] MEDS: CarBAMazepine 200 MG TABLET PO SCH ×2 (07:52→16:54)
[2018-12-01 09:09] VITALS: BP 110/63
[2018-12-01] MEDS: DIVALPROEX SODIUM 250 MG DR TABLET PO SCH (20:26)
[2018-12-02 08:00] VITALS: BP 121/68
[2018-12-02] MEDS: BENZTROPINE MESYLATE 1 MG TABLET PO SCH ×2 (08:47→16:36)
[2018-12-02] MEDS: CarBAMazepine 200 MG TABLET PO SCH ×2 (08:47→16:35)
[2018-12-02] MEDS: RisperiDONE 3 MG TABLET PO SCH ×2 (08:48→16:35)
[2018-12-02 16:00] VITALS: BP 150/94
[2018-12-02] MEDS: DIVALPROEX SODIUM 250 MG DR TABLET PO SCH (21:17)
[2018-12-03 08:49] VITALS: BP 121/65
[2018-12-03] MEDS: BENZTROPINE MESYLATE 1 MG TABLET PO SCH ×2 (09:17→16:24)
[2018-12-03] MEDS: RisperiDONE 3 MG TABLET PO SCH ×2 (09:17→16:24)
[2018-12-03] MEDS: CarBAMazepine 200 MG TABLET PO SCH ×2 (09:17→16:24)
[2018-12-03 16:45] VITALS: BP 133/80
[2018-12-03] MEDS: HALOPERIDOL 5 MG TABLET PO PRN (19:52)
[2018-12-03] MEDS: LORazepam 2 MG TABLET PO PRN (19:52)
[2018-12-03] MEDS: DIVALPROEX SODIUM 250 MG DR TABLET PO SCH (20:02)
[2018-12-04] MEDS: CarBAMazepine 200 MG TABLET PO SCH ×2 (09:30→16:26)
[2018-12-04] MEDS: RisperiDONE 3 MG TABLET PO SCH ×2 (09:31→16:26)
[2018-12-04] MEDS: BENZTROPINE MESYLATE 1 MG TABLET PO SCH ×2 (09:31→16:26)
[2018-12-04 10:55] VITALS: BP 111/63
[2018-12-04] MEDS ORDERED: TUBERCULIN, PURIFIED PROTEIN DERIVATIVE 5 TU/0.1 ML SYRINGE ID ONE (12:30)
[2018-12-04 16:56] VITALS: BP 145/88
[2018-12-04] MEDS: DIVALPROEX SODIUM 250 MG DR TABLET PO SCH (21:28)
[2018-12-05] MEDS: CarBAMazepine 200 MG TABLET PO SCH ×2 (08:25→17:24)
[2018-12-05] MEDS: BENZTROPINE MESYLATE 1 MG TABLET PO SCH ×2 (08:25→17:24)
[2018-12-05] MEDS: RisperiDONE 3 MG TABLET PO SCH ×2 (08:25→17:24)
[2018-12-05 14:03] VITALS: BP 140/79
[2018-12-05 16:30] VITALS: BP 126/69
[2018-12-05] MEDS: DIVALPROEX SODIUM 250 MG DR TABLET PO SCH (20:06)
[2018-12-06 09:09] VITALS: BP 127/71
[2018-12-06] MEDS: CarBAMazepine 200 MG TABLET PO SCH ×2 (10:54→16:07)
[2018-12-06] MEDS: BENZTROPINE MESYLATE 1 MG TABLET PO SCH ×2 (10:55→16:07)
[2018-12-06] MEDS: RisperiDONE 3 MG TABLET PO SCH ×2 (10:55→16:07)
[2018-12-06] MEDS: LORazepam 2 MG TABLET PO PRN (16:22)
[2018-12-06] MEDS: HALOPERIDOL 5 MG TABLET PO PRN (16:22)
[2018-12-06 16:49] VITALS: BP 126/76
[2018-12-06] MEDS: DIVALPROEX SODIUM 250 MG DR TABLET PO SCH (20:28)
[2018-12-07] MEDS: CarBAMazepine 200 MG TABLET PO SCH ×2 (08:13→16:06)
[2018-12-07] MEDS: RisperiDONE 3 MG TABLET PO SCH ×2 (08:14→16:06)
[2018-12-07] MEDS: BENZTROPINE MESYLATE 1 MG TABLET PO SCH ×2 (08:14→16:06)
[2018-12-07 09:31] VITALS: BP 118/73
[2018-12-07] MEDS: HALOPERIDOL 5 MG TABLET PO PRN (16:06)
[2018-12-07] MEDS: LORazepam 2 MG TABLET PO PRN (16:06)
[2018-12-07 16:54] VITALS: BP 113/84
[2018-12-07] MEDS: DIVALPROEX SODIUM 250 MG DR TABLET PO SCH (20:15)
[2018-12-08] MEDS: BENZTROPINE MESYLATE 1 MG TABLET PO SCH ×2 (07:34→16:08)
[2018-12-08] MEDS: RisperiDONE 3 MG TABLET PO SCH ×2 (07:35→16:09)
[2018-12-08] MEDS: CarBAMazepine 200 MG TABLET PO SCH ×2 (07:35→16:09)
[2018-12-08 08:00] VITALS: BP 121/57
[2018-12-08 16:47] VITALS: BP 124/80
[2018-12-08] MEDS: DIVALPROEX SODIUM 250 MG DR TABLET PO SCH (20:02)
[2018-12-09] MEDS: RisperiDONE 3 MG TABLET PO SCH ×2 (08:13→16:13)
[2018-12-09] MEDS: BENZTROPINE MESYLATE 1 MG TABLET PO SCH ×2 (08:13→16:13)
[2018-12-09] MEDS: CarBAMazepine 200 MG TABLET PO SCH ×2 (08:13→16:13)
[2018-12-09 08:43] VITALS: BP 131/87
[2018-12-09] MEDS: HALOPERIDOL 5 MG TABLET PO PRN (16:13)
[2018-12-09] MEDS: LORazepam 2 MG TABLET PO PRN (16:13)
[2018-12-09] MEDS: DIVALPROEX SODIUM 250 MG DR TABLET PO SCH (20:00)
[2018-12-10 08:00] VITALS: BP 149/94
[2018-12-10] MEDS: BENZTROPINE MESYLATE 1 MG TABLET PO SCH ×2 (09:01→17:28)
[2018-12-10] MEDS: CarBAMazepine 200 MG TABLET PO SCH ×2 (09:01→17:28)
[2018-12-10] MEDS: RisperiDONE 3 MG TABLET PO SCH ×2 (09:01→17:28)
[2018-12-10 16:00] VITALS: BP 145/93
[2018-12-10] MEDS: DIVALPROEX SODIUM 250 MG DR TABLET PO SCH (20:26)
[2018-12-10] MEDS: LORazepam 2 MG TABLET PO PRN (21:00)
[2018-12-10] MEDS: HALOPERIDOL 5 MG TABLET PO PRN (21:00)
[2018-12-11] MEDS: RisperiDONE 3 MG TABLET PO SCH ×2 (08:05→17:15)
[2018-12-11] MEDS: CarBAMazepine 200 MG TABLET PO SCH ×2 (08:07→17:15)
[2018-12-11] MEDS: BENZTROPINE MESYLATE 1 MG TABLET PO SCH ×2 (08:08→17:15)
[2018-12-11 08:19] VITALS: BP 137/92
[2018-12-11 16:00] VITALS: BP 126/87
[2018-12-11] MEDS: ZOLPIDEM TARTRATE 10 MG TABLET PO PRN (20:05)
[2018-12-11] MEDS: DIVALPROEX SODIUM 250 MG DR TABLET PO SCH (20:05)
[2018-12-12] VITALS (7 sets, daily range): BP systolic 116–143; BP diastolic 82–91
[2018-12-12] MEDS: BENZTROPINE MESYLATE 1 MG TABLET PO SCH ×2 (08:30→15:56)
[2018-12-12] MEDS: RisperiDONE 3 MG TABLET PO SCH ×2 (08:30→15:56)
[2018-12-12] MEDS: CarBAMazepine 200 MG TABLET PO SCH ×2 (08:30→15:56)
[2018-12-12] MEDS: HALOPERIDOL 5 MG TABLET PO PRN (15:56)
[2018-12-12] MEDS: LORazepam 2 MG TABLET PO PRN (16:52)
[2018-12-12] MEDS: DIVALPROEX SODIUM 250 MG DR TABLET PO SCH (20:44)
[2018-12-13] MEDS: RisperiDONE 3 MG TABLET PO SCH ×2 (08:13→17:20)
[2018-12-13] MEDS: CarBAMazepine 200 MG TABLET PO SCH ×2 (08:14→17:20)
[2018-12-13] MEDS: BENZTROPINE MESYLATE 1 MG TABLET PO SCH ×2 (08:14→17:20)
[2018-12-13 08:24] VITALS: BP 103/67
[2018-12-13] MEDS: LORazepam 2 MG TABLET PO PRN (19:38)
[2018-12-13] MEDS: HALOPERIDOL 5 MG TABLET PO PRN (19:38)
[2018-12-13] MEDS: DIVALPROEX SODIUM 250 MG DR TABLET PO SCH (20:08)
[2018-12-14 08:10] VITALS: BP 125/73
[2018-12-14] MEDS: CarBAMazepine 200 MG TABLET PO SCH ×2 (09:27→16:25)
[2018-12-14] MEDS: RisperiDONE 3 MG TABLET PO SCH ×2 (09:28→16:25)
[2018-12-14] MEDS: BENZTROPINE MESYLATE 1 MG TABLET PO SCH ×2 (09:28→16:24)
[2018-12-14 17:37] VITALS: BP 143/92
[2018-12-14] MEDS: DIVALPROEX SODIUM 250 MG DR TABLET PO SCH (20:10)
[2018-12-14] MEDS: LORazepam 2 MG TABLET PO PRN (21:35)
[2018-12-14] MEDS: HALOPERIDOL 5 MG TABLET PO PRN (21:35)
[2018-12-15 08:05] VITALS: BP 112/86
[2018-12-15] MEDS: BENZTROPINE MESYLATE 1 MG TABLET PO SCH ×2 (08:43→16:18)
[2018-12-15] MEDS: CarBAMazepine 200 MG TABLET PO SCH ×2 (08:43→16:17)
[2018-12-15] MEDS: RisperiDONE 3 MG TABLET PO SCH ×2 (08:43→16:18)
[2018-12-15 16:10] VITALS: BP 128/88
[2018-12-15] MEDS: ZOLPIDEM TARTRATE 10 MG TABLET PO PRN (20:33)
[2018-12-15] MEDS: DIVALPROEX SODIUM 250 MG DR TABLET PO SCH (20:33)
[2018-12-16] MEDS: BENZTROPINE MESYLATE 1 MG TABLET PO SCH ×2 (09:29→16:37)
[2018-12-16] MEDS: CarBAMazepine 200 MG TABLET PO SCH ×2 (09:29→16:37)
[2018-12-16] MEDS: RisperiDONE 3 MG TABLET PO SCH ×2 (09:29→16:37)
[2018-12-16 11:21] VITALS: BP 133/91
[2018-12-16 16:42] VITALS: BP 127/90
[2018-12-16] MEDS: HALOPERIDOL 5 MG TABLET PO PRN (19:10)
[2018-12-16] MEDS: LORazepam 2 MG TABLET PO PRN (19:10)
[2018-12-16] MEDS: DIVALPROEX SODIUM 250 MG DR TABLET PO SCH (20:43)
[2018-12-17] MEDS: RisperiDONE 3 MG TABLET PO SCH ×2 (08:35→16:18)
[2018-12-17] MEDS: BENZTROPINE MESYLATE 1 MG TABLET PO SCH ×2 (08:35→16:18)
[2018-12-17] MEDS: HALOPERIDOL 5 MG TABLET PO PRN ×2 (08:35→16:18)
[2018-12-17] MEDS: LORazepam 2 MG TABLET PO PRN ×2 (08:35→16:18)
[2018-12-17] MEDS: CarBAMazepine 200 MG TABLET PO SCH ×2 (08:35→16:18)
[2018-12-17 16:00] VITALS: BP 108/64
[2018-12-17] MEDS: DIVALPROEX SODIUM 250 MG DR TABLET PO SCH (20:29)
[2018-12-18] MEDS: HALOPERIDOL 5 MG TABLET PO PRN ×2 (08:08→16:27)
[2018-12-18] MEDS: LORazepam 2 MG TABLET PO PRN ×2 (08:08→16:27)
[2018-12-18] MEDS: BENZTROPINE MESYLATE 1 MG TABLET PO SCH ×2 (08:08→16:27)
[2018-12-18] MEDS: CarBAMazepine 200 MG TABLET PO SCH ×2 (08:08→16:27)
[2018-12-18] MEDS: RisperiDONE 3 MG TABLET PO SCH ×2 (08:09→16:27)
[2018-12-18 09:54] VITALS: BP 110/80
[2018-12-18 16:00] VITALS: BP 132/81
[2018-12-18] MEDS: DIVALPROEX SODIUM 250 MG DR TABLET PO SCH (21:01)
[2018-12-19 08:25] VITALS: BP 115/79
[2018-12-19] MEDS: RisperiDONE 3 MG TABLET PO SCH (08:30)
[2018-12-19] MEDS: BENZTROPINE MESYLATE 1 MG TABLET PO SCH (08:30)
[2018-12-19] MEDS: CarBAMazepine 200 MG TABLET PO SCH (08:31)
[2018-12-19] MEDS ORDERED: CARB200T6 PO (08:31)
[2018-12-19] MEDS ORDERED: DIVA-76 PO (08:31)
== END 2018-12-19 10:45 | DRG 885 ==
LOC: EMS 17:13 → 3EI 19:02 → 3EC 11-28 18:15
PROVIDERS: ADMIT Psychiatry & Neurology Psychiatry; ATTEND Psychiatry & Neurology Psychiatry
DX: F20.0 Paranoid schizophrenia (principal); I10 Essential (primary) hypertension; E78.00 Pure hypercholesterolemia, unspecified; E03.9 Hypothyroidism, unspecified; D72.829 Elevated white blood cell count, unspecified; E78.5 Hyperlipidemia, unspecified; F39 Unspecified mood [affective] disorder; F94.0 Selective mutism; G47.00 Insomnia, unspecified; Z59.0 Homelessness; Z91.14 Patient's other noncompliance with medication regimen; Z91.19 Patient's noncompliance with other medical treatment and regimen
CPT/HCPCS: 83036; 84443; 93005; G0480

== ENCOUNTER 2021-07-21 20:40 | Emergency (ER) | payer MEDICARE, MEDICAID ==
[~2021-07-21] VITALS: Ht 177.8 cm; Wt 77.3 kg
[~2021-07-21 20:40] MED LIST changes: +CARB200T6 PO; +DIVA-111 PO; -RISP1 PO; +RISP2TAB45 PO
[2021-07-21] MEDS: ONDANSETRON HCL 4 MG/2 ML VIAL IVP ONE (21:37)
[2021-07-21] MEDS: PERTUSS(ACELL),DIPH,TET VAC/PF 0.5 ML SYRINGE IM. ONE (21:37)
[2021-07-21] MEDS: LIDOCAINE 1% 10 ML VIAL SQ ONE (21:37)
[2021-07-21] MEDS: SODIUM CHLORIDE 0.9% 1,000 ML IV ONE (21:37)
[2021-07-21 21:40] LABS: BASOPHILS % (AUTO) 0.5 % (0.0-2.0); EOSINOPHILS % (AUTO) 1.6 % (1.0-6.0); HEMATOCRIT 43.2 % (41-53); HEMOGLOBIN 15.1 g/dL (13.5-17.5); LYMPHOCYTES # (AUTO) 1.8 K/uL (1.0-4.8); LYMPHOCYTES % (AUTO) 28.8 % (22.0-44.0); MEAN CORPUSCULAR HEMOGLOBIN 31.1 pg (26.0-34.0); MEAN CORPUSCULAR VOLUME 89 fL (80-100); MONOCYTES # (AUTO) 0.4 K/uL (0.1-1.0); NEUTROPHILS % (AUTO) 63.1 % (40.0-70.0); PLATELET COUNT (AUTO) 196 K/uL (150-450); RED BLOOD CELL COUNT(AUTO) 4.86 MIL/uL (4.50-5.90); RED CELL DISTRIBUTION WIDTH 12.6 % (11.5-14.5)
[2021-07-21 21:49] LABS: ANION GAP 7 mmol/L (8-16); CALCIUM, TOTAL 8.1 mg/dL (8.8-10.5); CARBON DIOXIDE 28 mmol/L (22-29); CHLORIDE 104 mmol/L (98-107); CREATININE 1.02 mg/dL (0.60-1.30); GLOMERULAR FILTR. RATE CALC > 60 mL/min (>60); GLUCOSE,RANDOM 105 mg/dL (70-110); POTASSIUM 3.1 mmol/L (3.5-5.1); SODIUM SERUM 139 mmol/L (136-145); UREA NITROGEN, BLOOD 11 mg/dL (7-18)
[2021-07-21 21:57] LABS: ALANINE AMINOTRANSFERASE 32 U/L (12-78); ALKALINE PHOSPHATASE 78 U/L (46-116); ASPARTATE AMINOTRANSFERASE 10 U/L (15-37); BILIRUBIN,TOTAL 0.3 mg/dL (0.1-1.0); TOTAL PROTEIN, SERUM 7.1 g/dL (6.4-8.2); VALPROIC ACID 86 mcg/mL (50-100)
[2021-07-21 22:02] LABS: ALBUMIN 3.8 g/dL (3.4-5.0)
[2021-07-21] MEDS: POTASSIUM CHLORIDE 20 MEQ ER TABLET PO ONE (22:20)
[2021-07-21 23:37] VITALS: BP 115/71
== END 2021-07-22 00:20 | disposition home or self-care (01) ==
LOC: EMS 21:08
DX: S01.511A Laceration without foreign body of lip, initial encounter (principal); E87.6 Hypokalemia; R55 Syncope and collapse; F20.9 Schizophrenia, unspecified; I10 Essential (primary) hypertension; W10.9XXA Fall (on) (from) unspecified stairs and steps, initial encounter; Y93.89 Activity, other specified; Y92.89 Other specified places as the place of occurrence of the external cause; Y99.8 Other external cause status
CPT/HCPCS: 12011; 36415; 70450; 71045; 72125; 80053; 80164; 85025; 90471; 90715; 93005; 96361; 96374; 99285; G0480; J2405; J3490; J7030

== ENCOUNTER 2021-09-02 10:32 | Emergency (ER) | payer MEDICARE, MEDICAID ==
[~2021-09-02] VITALS: Ht 182.9 cm; Wt 84.1 kg
[2021-09-02] MEDS ORDERED: HALOPERIDOL 5 MG TABLET PO ONE (12:00)
[2021-09-02] MEDS ORDERED: LORazepam 1 MG TABLET PO ONE (12:00)
[2021-09-02 13:35] VITALS: BP 119/87
== END 2021-09-02 13:39 | disposition home or self-care (01) ==
LOC: EMS 10:32
DX: F20.9 Schizophrenia, unspecified (principal); I10 Essential (primary) hypertension
CPT/HCPCS: 99284; Z7502; Z7610

== ENCOUNTER 2023-05-30 22:06 | Emergency (ER) | payer MEDICARE, MEDICAID ==
[~2023-05-30] VITALS: Ht 182.9 cm; Wt 76.0 kg
[~2023-05-30 22:06] MED LIST changes: -BENZ1TAB10 PO; +BENZ1TAB84 PO; +CARB-92 PO; -CARB200T6 PO
[2023-05-31 00:32] VITALS: TEMP 98.5
[2023-05-31] MEDS ORDERED: ATOR20TA PO (00:57)
[2023-05-31] MEDS ORDERED: DIVA500T53 PO (00:57)
[2023-05-31 01:16] LABS: BASOPHILS % (AUTO) 0.8 % (0.0-2.0); EOSINOPHILS % (AUTO) 1.5 % (1.0-6.0); HEMATOCRIT 39.5 % (41-53); HEMOGLOBIN 13.9 g/dL (13.5-17.5); LYMPHOCYTES # (AUTO) 2.4 K/uL (1.0-4.8); LYMPHOCYTES % (AUTO) 44.4 % (22.0-44.0); MEAN CORPUSCULAR HEMOGLOBIN 32.2 pg (26.0-34.0); MEAN CORPUSCULAR HGB CONC 35.1 G/dL (31.0-37.0); MEAN CORPUSCULAR VOLUME 92 fL (80-100); MONOCYTES # (AUTO) 0.6 K/uL (0.1-1.0); MONOCYTES % (AUTO) 11.5 % (2.0-9.0); NEUTROPHILS # (AUTO) 2.2 K/uL (1.8-7.7); NEUTROPHILS % (AUTO) 41.8 % (40.0-70.0); PLATELET COUNT (AUTO) 183 K/uL (150-450); RED CELL DISTRIBUTION WIDTH 13.1 % (11.5-14.5); WHITE BLOOD COUNT (AUTO) 5.3 K/uL (4.5-11.0)
[2023-05-31 01:24] LABS: ANION GAP 9 mmol/L (8-16); CALCIUM, TOTAL 8.2 mg/dL (8.8-10.5); CARBON DIOXIDE 25 mmol/L (22-29); CHLORIDE 96 mmol/L (98-107); CREATININE 0.71 mg/dL (0.60-1.30); GLOMERULAR FILTR. RATE CALC > 60 mL/min (>60); GLUCOSE,RANDOM 99 mg/dL (70-110); POTASSIUM 3.4 mmol/L (3.5-5.1); SODIUM SERUM 130 mmol/L (136-145); UREA NITROGEN, BLOOD 8 mg/dL (7-18)
[2023-05-31 01:31] LABS: ALANINE AMINOTRANSFERASE 8 U/L (12-78); ALBUMIN 3.3 g/dL (3.4-5.0); ALKALINE PHOSPHATASE 104 U/L (46-116); ASPARTATE AMINOTRANSFERASE 12 U/L (15-37); BILIRUBIN,TOTAL 0.3 mg/dL (0.1-1.0); CARBAMAZEPINE (TEGRETOL) 5.9 mcg/mL (4.0-12.0); TOTAL PROTEIN, SERUM 6.2 g/dL (6.4-8.2); VALPROIC ACID 104 mcg/mL (50-100)
[2023-05-31 01:32] LABS: ALCOHOL, BLOOD (SERUM) < 3 mg/dL (0-10)
[2023-05-31 07:10] VITALS: BP 102/64; PULSE 60; RESP 20
== END 2023-05-31 10:50 | disposition home or self-care (01) ==
LOC: EMS 22:07
DX: F20.9 Schizophrenia, unspecified (principal); I10 Essential (primary) hypertension
CPT/HCPCS: 99284; 80053; 80156; 80164; 85025; 36415; G0480

== ENCOUNTER 2024-11-15 20:48 | Emergency (ER) | payer OTHER ==
[~2024-11-15] VITALS: Ht 180.3 cm; Wt 98.2 kg
[~2024-11-15 20:48] MED LIST changes: +ATOR20TA PO; -BENZ1TAB84 PO; +DIVA-112 PO; -RISP2TAB45 PO; +RISP3TAB35 PO
[2024-11-15 21:16] VITALS: TEMP 99.8
[2024-11-15 22:28] VITALS: BP 131/81; PULSE 95; RESP 18; O2SAT 99
[2024-11-15] MEDS ORDERED: SULF-261 PO (23:38)
[2024-11-15] MEDS ORDERED: CEPH-558 PO (23:38)
[2024-11-15] MEDS: SULFAMETHOX/TRIMETH DS 800-160 MG/TABLET PO ONE (23:41)
[2024-11-15] MEDS: CEPHALEXIN MONOHYDRATE 500 MG CAPSULE PO ONE (23:41)
== END 2024-11-16 00:22 | disposition home or self-care (01) ==
LOC: EMS 20:48
DX: L08.9 Local infection of the skin and subcutaneous tissue, unspecified (principal); L03.113 Cellulitis of right upper limb; I10 Essential (primary) hypertension; Z79.899 Other long term (current) drug therapy
CPT/HCPCS: 99283